=== PATIENT | female | born 1945 | race Caucasian/White ===

== ENCOUNTER 2018-03-13 10:52 | Outpatient (CLI) | payer MEDICARE ==
[~2018-03-13] VITALS: Ht 162.6 cm; Wt 105.9 kg
--- NOTE | ~2018-03-13 | HEMODYNAMI ---
PATIENT:SUSAN HEALY MEDICAL RECORD: [id number] : 47 LOCATION:D.CAT ADMISSION DATE: 03/13/18 Generatedon:03/13/201813:38 Patient name: SUSAN HEALY Patient #: [id number] SSN: : 1945 Date of study: 03/13/2018 Page: Of Hemodynamic Procedure Report Patient Data Patient Demographics Procedure consent was obtained First Name: SUSAN Gender: Female Last Name: NIRAJ : 1945 Patient #: [id number] Age: 72 year(s) Race: Unknown Additional ID: [id number] Contact details [address]: [address] [place] [address] State: [place] City: [place] Zip code: [address] Past Medical History Allergies Allergen Reaction Date Comments Reported Other allergy 03/13/2018 NITROGLYCERIN Sulfa drugs 03/13/2018 Morphine 03/13/2018 Codeine 03/13/2018 Other allergy 03/13/2018 TYLENOL Other allergy 03/13/2018 FLU VACCINE Admission Admission Data Admission Date: 03/13/2018 Admission Time: 10:52 Procedure Procedure Types Cath Procedure Diagnostic Procedure LHC LHC w/Coronaries w/Grafts Cardioversion External PCI Procedure AMI/SVG/AUTOMOBILE GLASS TECHNICIAN PTCA or Stent SVG-BMS/JUAN Initial Procedure Description Procedure Date Procedure Date: 03/13/2018 Procedure Start Time: 13:14 Procedure End Time: 13:37 Procedure Staff Name Function Hilton Calderon MD Performing Physician Geneva Martinez RT Monitor Carlos Reyez Jr, CRNA Additional personnel Viktoriya Castro RN Nurse Yamileth Robbins RT Scrub Procedure Data Cath Procedure Fluoroscopy Diagnostic fluoroscopy Total fluoroscopy Time: 4.3 time: 4.3 min min Diagnostic fluoroscopy Total fluoroscopy dose: dose: 1145 mGy 1145 mGy Contrast Material Contrast Material Type Amount (ml) Isovue 300 109 Entry Location Entry Primary Successful Side Size Upsize Upsize Entry Closure Succes sful Closure Location (Fr) 1 (Fr) 2 (Fr) Remarks Device Remarks Femoral Right 5 Fr 6 Fr Exoseal artery Short Estimated blood loss: 10 ml Diagnostic catheters Device Type Used For End Catheter Placement MULTIPACK JL 4.0 5Fr Left Coronary catheter Angiography MULTIPACK 3DRC 5Fr Right Coronary catheter Angiography MULTIPACK 3DRC 5Fr SVG Angiography catheter MULTIPACK 3DRC 5Fr SVG Angiography catheter MULTIPACK 3DRC 5Fr Internal mammary catheter arteriography DIAGNOSTIC AR1 MOD 5Fr SVG Angiography catheter ([id number]) MULTIPACK Pigtail 5 Fr LV Angiography catheter Procedure Complications No complications Procedure Medications Medication Administration Route Dosage 0.9% NaCl I.V. 100 ml/hr Oxygen etCO2 Nasal cannula 2 l/min Refer to Anesthesia Notes for Sedation Medications Heparin Bolus I.V. 5000 units Integrilin (Bolus I.V. 9.5 ml 2mg/ml) Plavix P.O. 600 mg Hemodynamics Rest Heart Rate: 88 (bpm) Pressure Samples Time Site Value (mmHg) Purpose Heart Use Rate(bpm) 13:24 LV 91/12,13 EDP 70 13:25 AO 83/34(60) Pullback 68 13:25 LV 90/16,13 Pullback 68 Gradients Valve Time Site 1 Site 2 Mean SEP/DFP Peak To Heart Use (mmHg) (sec/min) Peak Rate (mmHg) (bpm) Aortic 13:25 LV AO 11 23 7 68 90/16,13 83/34(60) Calculations Valve P-P Mean Valve Index Valve Source Name Gradient Area Flow (cm2) Aortic 7 11 7 11 Snapshots Pre Cath Intra NCS Post Cath Vital Signs Time Heart Resp SPO2 etCO2 NIBP (mmHg) Rhythm Pain Sedation Rate (ipm) (%) (mmHg) Status Level (bpm) 13:06:39 90 19 100 27.9 80/63(66) A-Fib 0 (11) 10(A) , No pain 13:09:23 88 20 100 30.2 130/92(108) A-Fib 0 (11) 10(A) , No pain 13:13:37 93 21 100 36.2 120/97(119) Paced 0 (11) 5(A) , No pain 13:17:49 80 16 97 39.2 94/59(78) Paced 0 (11) 5(A) , No pain 13:22:03 70 14 97 40 92/47(71) Paced 0 (11) 5(A) , No pain 13:26:14 68 13 96 40 86/52(69) Paced 0 (11) 5(A) , No pain 13:30:24 72 12 96 45.3 94/50(73) Paced 0 (11) 5(A) , No pain 13:34:38 70 14 96 39.2 93/48(75) Paced 0 (11) 10(A) , No pain Medications Time Medication Route Dose Verified Delivered Reason Notes E ffectiveness by by 13:04:36 0.9% NaCl I.V. 100 Hilton Sadler used for ml/hr YumikoOren Castro procedure MD PÉREZ 13:04:44 Oxygen etCO2 2 Hilton Hintona used for Nasal l/min St Oren Castro procedure cannula MD PÉREZ 13:04:49 Refer to Hilton Sadler Anesthesia St Oren Castro Notes for MD PÉREZ Sedation Medications 13:26:21 Heparin I.V. 5000 Hilton Hintona for verified Bolus units YumikoOren Castro anticoagulation with Dr. MD PÉREZ [place] 13:26:36 Integrilin I.V. 9.5 Hilton Hintona for wasted (Bolus ml St Oren Castro anticoagulation 0.5mL 2mg/ml) MD PÉREZ 13:36:01 Plavix P.O. [address] for mg St Oren Castro antiplatelet MD PÉREZ therapy Procedure Log Time Note 12:30:14 Signed procedure consent form obtained from patient. 12:33:23 Time tracking: Regular hours (M-F 7:00 - 5:00) 12:33:27 Plan of Care:Hemodynamics will remain stable., Cardiac rhythm will remain stable., Comfort level will be maintained., Respiratory function will remain adequate., Patient/ family verbilizes understanding of procedure., Procedure tolerated without complication., Recovers from procedure without complications.. 12:39:15 Geneva Counts RT(R) sent for patient. Start room use. 12:45:09 Patient received from Pre/Post Procedure Room to CCL 1 Alert and oriented. Tansferred to table in Supine position. 12:46:22 Warm blankets applied, and josé miguel hugger turned on for patient comfort. 12:46:23 Correct patient and procedure confirmed by team. 12:50:37 IV left wrist D/C'd due to infiltration. 12:50:57 IV started by Viktoriya Castro RN inright hand with a 22 gauge IV catheter with 0.9% NaCl at KVO. 12:52:42 Full Disclosure recording started 12:52:48 Previous problem with sedation/anesthesia? No ? 12:52:49 Snore? Yes 12:52:50 Sleep apnea? Yes 12:52:51 Deviated septum? No 12:52:52 Opens mouth fully? Yes 12:52:53 Sticks out tongue? Yes 12:53:00 Airway obstruction? Yes ASTHMA 12:53:06 Dentures? No ? 13:03:56 Vital chart was started 13:04:36 0.9% NaCl 100 ml/hr I.V. was administered by Viktoriya Castro RN; used for procedure; 13:04:44 Oxygen 2 l/min etCO2 Nasal cannula was administered by Viktoriya Castro RN; used for procedure; 13:04:49 Refer to Anesthesia Notes for Sedation Medications was administered by Viktoriya Castro RN; ; 13:05:11 Carlos Reyez Jr, CRNA present and monitoring patient for TIVA. 13:06:27 Baseline sample Acquired. 13:06:27 ECG and BP/O2 sat monitors applied to patient. 13:06:33 Rhythm: atrial fibrillation 13:06:41 H&P Date Dictated: 02/28/2018 Within 30 days and on chart., H&P Addendum completed by physician on day of procedure. (MUST COMPLETE FOR ALL OUTPATIENTS). 13:06:45 Pre-procedure instructions explained to patient. 13:06:45 Pre-op teaching completed and patient verbalized understanding. 13:06:47 Family in patients room. 13:06:49 Patient NPO since Midnight. 13:07:15 Patient allergic to Other allergyNITROGLYCERIN 13:07:23 Patient allergic to Sulfa drugs 13:07:35 Patient allergic to Morphine 13:07:44 Patient allergic to Codeine 13:07:54 Patient allergic to Other allergyTYLENOL 13:08:15 Patient allergic to Other allergyFLU VACCINE 13:08:19 Is the patient allergic to Iodine/contrast media? No. 13:08:21 Is patient on blood thinner?Yes 13:08:30 ACC The patient was administered the following blood thiners within the last 24 hours: ACCAspirin, Xarelto 13:08:32 Patient diabetic? No. 13:08:38 Pre procedure: right dorsailis pedis pulse 2+ Normal; easily identifiable; not easily obliterated 13:08:40 Patient pain scale 0/10 ?. 13:08:43 Lab results completed and on chart. 13:08:47 Right groin area was prepped with chlora-prep and draped in sterile fashion 13:08:47 Alarms reviewed by R. N. 13:08:48 Sharps counted by scrub and verified by R.N. 13:08:51 Use device set Femoral Dx 13:08:52 ACIST Syringe (50467) opened to sterile field. 13:08:52 Bag Decanter (2002S) opened to sterile field. 13:08:53 Medline Cath Pack ([id number]) opened to sterile field. 13:08:53 DIAGNOSTIC WIRE .035 260cm J wire (688877) opened to sterile field. 13:08:54 ACIST Hand Control (12948) opened to sterile field. 13:08:55 ACIST Manifold (77066) opened to sterile field. 13:08:56 DIAGNOSTIC Multipack 5Fr catheter set ([id number]) opened to sterile field. 13:08:56 Tegaderm 4 x 4 (1626W) opened to sterile field. 13:08:58 SHEATH 5FR [place] (PCK066) opened to sterile field. 13:11:29 Final Timeout: patient, procedure, and site verified with staff and physician. All members of the team are in agreement. 13:11:31 Right groin site verified by team. 13:11:34 Physical assessment completed. ASA score P 2 - A patient with mild systemic disease as per Hilton Calderon MD. 13:11:38 Sedation plan: TIVA Medication:Versed, Fentanyl 13:13:00 Procedure started. 13:13:00 Quick combo pads placed on patients chest and back. 13:13:03 Defibrillator synced and charged to 200 Joules. 13:13:04 Shock delivered. 13:13:07 Patient cardioverted to sinus rhythm . 13:14:32 Local anesthetic to right femoral artery with Lidocaine 2% by Hilton Calderon MD.INITIAL ACCESS ONLY 13:14:43 A 5 Fr sheath was inserted into the Right Femoral artery 13:15:36 A MULTIPACK JL 4.0 5Fr catheter was advanced over the wire and used for Left Coronary Angiography. 13:17:06 Catheter removed. 13:17:13 A MULTIPACK 3DRC 5Fr catheter was advanced over the wire and used for Right Coronary Angiography. 13:19:00 A MULTIPACK 3DRC 5Fr catheter was advanced over the wire and used for SVG Angiography. TO DIAG AND LAD 13:19:48 A MULTIPACK 3DRC 5Fr catheter was advanced over the wire and used for SVG Angiography. TO CIRC AND OM 13:21:01 A MULTIPACK 3DRC 5Fr catheter was advanced over the wire and used for Internal mammary arteriography. TO LAD OCCLUDED 13:22:11 A DIAGNOSTIC AR1 MOD 5Fr catheter ([id number]) was advanced over the wire and used for SVG Angiography. TO RCA 13:23:01 Catheter removed. 13:23:08 A MULTIPACK Pigtail 5 Fr catheter was advanced over the wire and used for LV Angiography. 13:23:40 Use device set [place] PCI 13:23:41 SHEATH 6FR [place] (UWU390) opened to sterile field. 13:23:44 INFLATOR Merit BasixCompak (LO6672) opened to sterile field. 13:23:47 WHISPER 300cm guide wire ([id number]) opened to sterile field. 13:24:39 LV gram done using PARRA 13:24:40 LV hemodynamics recorded. 13:24:46 Injector settings: Ml/sec: 10, Volume: 20, 13:24:52 EF : 50 % 13:25:25 Catheter removed. 13:25:32 Sheath upsized to a 6 Fr Short. 13:26:00 GUIDE 6FR AR 1.0 catheter ([id number]) opened to sterile field. 13:26:21 Heparin Bolus 5000 units I.V. was administered by Viktoriya Castro RN; for anticoagulation; verified with Dr. Ardon 13:26:31 6 Fr AR 1.0 guide catheter was inserted over the wire 13:26:36 Integrilin (Bolus 2mg/ml) 9.5 ml I.V. was administered by Viktoriya Castro RN; for anticoagulation; wasted 0.5mL 13:28:35 WHISPER wire advanced. 13:31:28 Place stent Inflation Number: 1 A ULTRA Rx 4.5 x 18 stent ([id number]) was prepped and advanced across the Aorta Right -> Dist RCA. The stent was deployed at 12 VIC for 0:27 (min:sec). 13:31:45 Stent catheter was removed intact over wire. 13:31:58 Wire removed. 13:31:59 Guide catheter removed. 13:32:07 Sheath removed intact; hemostasis achieved with Exoseal to the Right Femoral artery. 13:32:10 Procedure ended.(Physican Out) 13:32:13 EXOSEAL 6Fr (EX600) opened to sterile field. 13:32:24 Fluoroscopy time 04.30 minutes. 13:33:12 Fluoroscopy dose: 1145 mGy 13:33:12 Flurop Dose total: 1145 13:33:19 Contrast amount:Isovue 300 109ml. 13:33:20 Sharps counted by scrub and verified by R.N. 13:33:24 Insertion/operative site no bleeding no hematoma. 13:33:27 Post-op/insertion site Right Femoral artery dressed using a 4 x 4 and Tegaderm. 13:33:30 Post right femoral artery:stable, clean and dry 13:33:32 Post Procedure Pulses reassessed and unchanged 13:33:35 Post-procedure physical assessment completed. ASA score P 2 - A patient with mild systemic disease as per Hilton Calderon MD. 13:33:38 Post procedure rhythm: unchanged. 13:33:42 Estimated blood loss: 10 ml 13:33:43 Post procedure instruction explained to patient.Patient verbalizes understanding. 13:33:44 Patient needs reinforcement of post procedure teaching. 13:33:59 Procedure type changed to Cath procedure, Diagnostic procedure, LHC, LHC w/Coronaries w/Grafts, Cardioversion External, PCI procedure, AMI/SVG/AUTOMOBILE GLASS TECHNICIAN PTCA or Stent, SVG-BMS/JUAN Initial 13:34:04 Procedure Complication : No complications 13:34:07 See physician's report for complete and final results. 13:34:15 Quick Combo opened to sterile field. 13:34:38 Procedure and supply charges have been captured, reviewed, submitted and are correct. 13:36:01 Plavix 600 mg P.O. was administered by Viktoriya Castro RN; for antiplatelet therapy; 13:36:57 Report given to Pre/Post Procedure Room. 13:36:59 Patient transfered to Pre/Post Procedure Room with Stretcher. 13:37:39 Vital chart was stopped 13:37:42 Procedure ended. 13:37:42 Full Disclosure recording stopped 13:37:47 End room use (Document Last) Intervention Summary Intervention Notes Time ActionType Lesion and Equipment Action# Pressure Duration Attributes Used 13:31:28 Place stent Aorta Right ULTRA Rx 1 12 00:27 -> Dist RCA 4.5 x 18 stent ([id number]) Device Usage Item Name Manufacture Quantity Catalog Hospital Part Current Minima l Lot# / Number Charge Number Stock Stock Serial# Code ACIST Acist 1 72068 569298 586533 416295 20 Syringe Medical (40114) Systems SPI Lasers Bag Microtek 1 2001S 569763 61445 230523 5 Decanter Medical Inc. () Medline Medline 1 [id number] 250459 95632 679548 5 Cath Pack ([id number]) DIAGNOSTIC [facility] 1 739131 345240 871419 579532 30 WIRE .035 260cm J wire (299043) ACIST Hand Acist 1 69027 679071 020157 719687 5 Control Medical (90610) Systems SPI Lasers ACIST Acist 1 72695 402982 102655 183368 5 Manifold Medical (90499) Systems Inc DIAGNOSTIC Cardinal 1 EC1642 609319 33481 289001 30 Multipack Health 5Fr catheter set (XW1576) Tegaderm 4 3M 1 1626W 298251 294671 508409 5 x 4 (1626W) SHEATH 5FR Terumo 1 CHV149 173846 356632 471316 5 [place] (BDZ901) MULTIPACK Cardinal 1 624663 5 JL 4.0 5Fr Health catheter MULTIPACK Cardinal 1 219662 5 3DRC 5Fr Health catheter DIAGNOSTIC Cardinal 1 135146M 237543 312819 598701 15 AR1 MOD 5Fr Health catheter (288029U) MULTIPACK Cardinal 1 105702 5 Pigtail 5 Health Fr catheter SHEATH 6FR Terumo 1 CPY912 006727 686636 254889 40 [place] (CTC174) INFLATOR Merit 1 IE9917 602102 398745 664316 15 [facility] Medical BasixCompak (EW8694) WHISPER Barron 1 [id number] 196321 244973 638610 5 300cm guide Vascular wire (5583701MT) GUIDE 6FR Medtronic 1 [id number] 922863 87584 387008 1 AR 1.0 catheter (ZQ6MI54) ULTRA Rx Barron 1 7584354-92 447900 380774 583404 5 [id number] 4.5 x 18 Vascular stent ([id number]) EXOSEAL 6Fr Cardinal 1 EX600 987368 354343 064109 10 (EX600) [employer] 1 56642-829438 095203 223565 277509 5 Signature Audit [place] Stage Time Signature Unsigned Intra-Procedure 03/13/2018 [place] 1:37:59 PM Counts RT(R) Signatures Monitor : Geneva Signature : Counts RT Date : Time : [address] [place] [address]
[2018-03-13] MEDS ORDERED: ANORO ELLIPTA1 EACH INH (11:14)
[2018-03-13] MEDS ORDERED: BAYER CHEWABLE81 MG PO (11:14)
[2018-03-13] MEDS ORDERED: AZELASTINE137 MCG/0. NASAL (11:14)
[2018-03-13] MEDS ORDERED: BACLOFEN10 MG PO (11:15)
[2018-03-13] MEDS ORDERED: CENTRUM SILVER1 EACH PO (11:16)
[2018-03-13] MEDS ORDERED: BUSPAR 15 MG TA15 MG PO (11:16)
[2018-03-13] MEDS ORDERED: CITRACAL + D E1 EACH PO (11:16)
[2018-03-13] MEDS ORDERED: CO Q-10200 MG PO (11:17)
[2018-03-13] MEDS ORDERED: TIKOSYN500 MCG PO (11:17)
[2018-03-13] MEDS ORDERED: LASIX40 MG PO (11:18)
[2018-03-13] MEDS ORDERED: IMODIUM2 MG PO (11:18)
[2018-03-13] MEDS ORDERED: NEURONTIN600 MG PO (11:18)
[2018-03-13] MEDS ORDERED: MAG-OX 400 MG400 MG PO (11:19)
[2018-03-13] MEDS ORDERED: SYNTHROID75 MCG PO (11:19)
[2018-03-13] MEDS ORDERED: DEMEROL100 MG PO (11:20)
[2018-03-13] MEDS ORDERED: METOPROLOL TART50 MG PO (11:21)
[2018-03-13] MEDS ORDERED: SINGULAIR10 MG PO (11:22)
[2018-03-13] MEDS ORDERED: OMEGA-3100 MG PO (11:22)
[2018-03-13] MEDS ORDERED: MIRAPEX0.5 MG PO (11:22)
[2018-03-13] MEDS ORDERED: ALDACTONE25 MG PO (11:23)
[2018-03-13] MEDS ORDERED: ZANAFLEX4 MG PO (11:24)
[2018-03-13] MEDS ORDERED: XARELTO20 MG PO (11:25)
[2018-03-13] MEDS ORDERED: ULTRAM50 MG PO (11:25)
[2018-03-13] MEDS ORDERED: POTASSIUM99 M1 PO (11:26)
[2018-03-13 11:49] VITALS: BP 94/43; Ht 162.6 cm; Wt 105.9 kg
[2018-03-13 11:55] LABS: BASOPHILS 0.6 % (0-2); HEMATOCRIT 41.1 % (36.0-48.0); HEMOGLOBIN 13.4 g/dL (12-16); IMMATURE GRANULOCYTES 0.1 % (0-5); LYMPHOCYTES 35.1 % (15-50); MCH 30.2 pg (26.0-34.0); MCHC 32.6 g/dL (31.0-37.0); MCV 92.6 fL (80.0-100.0); MEAN PLATELET VOLUME 9.5 fL (7.4-10.4); MONOCYTES 8.2 % (2-11); PLATELET COUNT 274 10x3/uL (130-400); RBC 4.44 10x6/uL (4.00-5.40); RDW 13.4 % (11.5-14.5)
[2018-03-13 12:10] LABS: CALC OSMOLALITY 279 mosm/kg (275-300); CALCIUM 9.4 mg/dL (8.5-10.1); CARBON DIOXIDE 24.7 mmol/L (21.0-32.0); CHLORIDE - SERUM 103 mmol/L (98-107); CREATININE - SERUM 0.8 mg/dL (0.6-1.3); GLUCOSE 93 mg/dL (74-106); POTASSIUM - SERUM 4.5 mmol/L (3.5-5.1); SODIUM 139 mmol/L (136-145); UREA NITROGEN 19 mg/dL (7-18); eGFR NON AFRICAN AMERICAN 75 mL/min (90-120)
[2018-03-13 12:21] LABS: INR 1.08 (0.85-1.17); PROTIME 13.5 SECONDS (11.6-15.0)
--- NOTE | 2018-03-13 14:00 | NUR ---
PATIENT AWAKE, SIPPING ON SPRITE. DENIES ANY NAUSEA AT THIS TIME. VSS ON ROOM AIR. FAMILY PRESENT AT BEDSIDE, UPDATED BY PHYSICIAN. RIGHT GROIN DRESSING IS CDI,NO S/S OF BLEEDING OR HEMATOMA.
[2018-03-13] MEDS ORDERED: PLAVIX75 MG PO (14:06)
--- NOTE | 2018-03-13 14:30 | NUR ---
PATIENT AWAKE, VSS ON ROOM AIR. RIGHT GROIN DRESSING IS CDI,NO S/S OF BLEEDING OR HEMATOMA. NO C/O PAIN, NUMBNESS OR TINGLING. "INTERMITTENT NAUSEA" PER PATIENT.
--- NOTE | 2018-03-13 15:00 | NUR ---
PATIENT EATING TURKEY SANDWICH, NO N/V. TOLERATING PO FLUIDS. RIGHT GROIN DRESSING IS CDI, NO S/S OF BLEEDING OR HEMATOMA. NO C/O PAIN, WEAKNESS, OR NUMBNESS.
--- NOTE | 2018-03-13 15:30 | NUR ---
PATIENT AWAKE, VSS ON ROOM AIR. RIGHT GROIN DRESSING IS CDI, NO S/S OF BLEEDING OR HEMATOMA. NO N/V.
--- NOTE | 2018-03-13 16:00 | NUR ---
PATIENT AWAKE, VSS ON ROOM AIR. NO C/O PAIN,NUMBNESS, OR TINGLING. NO N/V. RIGHT GROIN DRESSING IS CDI, NO S/S OF BLEEDING OR HEMATOMA.
--- NOTE | 2018-03-13 16:30 | NUR ---
PATIENT AWAKE, RIGHT GROIN DRESSING IS CDI, NO S/S OF BLEEDING OR HEMATOMA. HEAD OF BED ELEVATED TO 30 DEGREES. VSS ON ROOM AIR.
--- NOTE | 2018-03-13 17:00 | NUR ---
PATIENT HEAD OF BED ELEVATED TO 75 DEGREES. RIGHT GROIN DRESSING IS CDI, NO S/S OF BLEEDING OR HEMATOMA. IV REMOVED AT THIS TIME. VSS ON ROOM AIR.
--- NOTE | 2018-03-13 17:29 | NUR ---
EDUCATION REGARDING DISCHARGE INSTRUCTIONS AND MEDICATIONS GIVEN TO PATIENT AND FAMILY AT THIS TIME, ALL QUESTIONS ANSWERED. VSS ON ROOM AIR. RIGHT GROIN DRESSING IS CDI, NO S/S OF BLEEDING OR HEMATOMA.
--- NOTE | 2018-03-13 17:35 | NUR ---
PATIENT TRANSPORTED VIA WHEELCHAIR TO BATHROOM AND THEN CAR WITH FAMILY MEMBER DRIVING. ALL BELONGINGS WITH PATIENT.
--- NOTE | 2018-03-25 12:54 | OP ---
PATIENT NAME: SUSAN HEALY MEDICAL RECORD: [id number] :47 LOCATION:D.CAT ADMISSION DATE: SURGEON: DANIAL GUADALUPE MD DATE OF OPERATION: 03/13/2018 PROCEDURE: Left heart catheterization, selective coronary angiography, right femoral artery approach. CATHETERS: A 5-[place] sheath, 5/4 left and right Heather, 5/4 pig. The procedure was well tolerated. The patient was returned to mckeon. Sheath was removed. ExoSeal device was placed. FINDINGS: Left ventriculography in 30-degree PARRA view; normal wall motion and normal systolic function. CORONARY ANATOMY: LEFT MAIN: Left main is free of disease. LAD: Fills for a short period of time and is seen filling via competitive flow as is diagonal system. CIRCUMFLEX: Totally occluded in its proximal portion. RIGHT CORONARY ARTERY: Totally occluded in its proximal portion. BYPASS GRAFTS. 1. OGLUIN injection shows atretic OLGUIN. 2. Saphenous vein graft to the diagonal is widely patent and this fills the LAD nicely in a retrograde fashion. 3. Saphenous vein graft to the circumflex system fills the OM1 and circumflex both nicely with no evidence of postanastomotic stenosis. 4. Saphenous vein graft to the right shows a tight stenosis at its distal third of approximately 80% involving the vein only. No evidence of postanastomotic stenosis. PLAN: Intervention to the vessel momentarily. DESCRIPTION OF PROCEDURE: A 5-Taiwanese sheath was exchanged for a 6-Taiwanese sheath. AR guide catheter provided excellent guide catheter support followed by 300-cm Mckean XT wire placed down across the occluded lesion in the saphenous vein graft to the right coronary distal part of this vessel. Stent deployed was 4.5 ULTRA non-drug eluting stent up to 12 atmospheres for 45 seconds. Final angiography shows excellent resolution of 80% stenosis with no significant residual. RITA flow was 3 throughout the procedure. Heparin and Integrilin were used during the case. Sheath was closed with ExoSeal device. TRANSINT:[id number] Voice Confirmation ID: [id number] DOCUMENT ID: [id number] DANIAL GUADALUPE MD at 1254 CC: [id number] DICTATION DATE: 03/13/18 1345 [place]IO ADMINISTRATOR: 03/13/18 1622 DEP CLI 03/13/18 [facility] [address] [place] [address]
--- NOTE | 2018-03-25 12:54 | OP ---
PATIENT NAME: SUSAN HEALY MEDICAL RECORD: [id number] :47 LOCATION:D.CAT ADMISSION DATE: SURGEON: DANIAL GUADALUPE MD DATE OF OPERATION: 03/13/2018 PROCEDURE: Cardioversion. DESCRIPTION OF PROCEDURE: After general sedation via TIVA via anesthesia, a single synchronized shock was successful in restoring atrial fibrillation to normal sinus rhythm. IMPRESSION: Successful cardioversion with single shock of 200 joules from atrial fibrillation to normal sinus rhythm. TRANSINT:[id number] Voice Confirmation ID: [id number] DOCUMENT ID: [id number] DANIAL GUADALUPE MD at 1254 CC: [id number] DICTATION DATE: 03/13/18 1342 SALESPERSON SEWING MACHINES: 03/13/18 1613 [facility] CLI 03/13/[address] [address]
== END 2018-03-13 17:35 ==
LOC: D.CATH 10:52
PROVIDERS: Internal Medicine Interventional Cardiology
DX: I48.91 Unspecified atrial fibrillation (principal); I25.110 Atherosclerotic heart disease of native coronary artery with unstable angina pectoris